=== PATIENT | female | born 1985 | race African-American/Black ===

== ENCOUNTER 2017-11-17 16:27 | Emergency (ER) | payer SELFPAY ==
[2017-11-17] MEDS ORDERED: HYDROcodone/Acetaminophen 10/325 mg Tablet ONE (17:17)
--- NOTE | 2017-11-17 18:05 | RAD ---
THREE VIEWS RIGHT ANKLE: 11/17/2017 HISTORY: Stepped off porch and twisted right ankle. Injury to right ankle. FINDINGS: The ankle mortise is congruent. There is no fracture or dislocation seen. There is subcutaneous sof t tissue swelling seen at the lateral and anterior aspect of the ankle. There is osseous density see n adjacent to the navicular bone, probably related to accessory centers of ossification as opposed to avulsion injuries. There are tiny plantar and posterior calcaneal enthesophytes identified. IMPRESSION: Subcutaneous soft tissue swelling without evidence of an acute fracture visualized. POS: TIFFANY
== END 2017-11-17 17:34 | disposition home or self-care (01) ==
LOC: ERS 16:27
DX: F17.210 Nicotine dependence, cigarettes, uncomplicated; S93.401A Sprain of unspecified ligament of right ankle, initial encounter; X50.1XXA Overexertion from prolonged static or awkward postures, initial encounter
CPT/HCPCS: 29515